=== PATIENT | female | born 1995 | race Caucasian/White ===

== ENCOUNTER 2022-05-02 10:23 | Emergency (ER) | payer BC ==
[2022-05-02] MEDS ORDERED: Sodium Chloride 0.9% 10 ML Syringe FLUSH PRN (11:01)
== END 2022-05-02 14:16 | disposition home or self-care (01) ==
LOC: JD.ED 10:23
DX: O03.9 Complete or unspecified spontaneous abortion without complication (principal)
CPT/HCPCS: 36415; 76817; 76817-26; 80053; 81001; 84702; 85025; 86900; 86901; 96372; 99284; J2790

== ENCOUNTER 2023-06-04 02:45 | Inpatient (IN) | payer BC ==
[2023-06-04] MEDS ORDERED: Ropivacaine 0.2% PF 2 MG/ML 20 ML SDV ONE (07:00)
[2023-06-04] MEDS ORDERED: Sodium Chloride 0.9% 10 ML Syringe FLUSH PRN (17:27)
[2023-06-04] MEDS ORDERED: Lidocaine 1% 50 ML MDV INJECT PRN (17:27)
[2023-06-04] MEDS ORDERED: Nalbuphine HCl 10 MG/ 1ML Amp IVPUSH PRN (17:27)
[2023-06-04] MEDS ORDERED: Oxytocin/Lactated Ringers 30 UNIT/500 ML BAG IV SCH ×2 (17:30)
[2023-06-04] MEDS ORDERED: Penicillin G Potassium 5 MILLUNITS in Sodium Chloride 0.9% 100 ML IV ONE (17:30)
[2023-06-04 18:04] LABS: BASOPHILS PERCENT AUTO 0.4 % (0.0-1.0); EOSINOPHILS PERCENT AUTO 0.3 % (0.0-6.0); HEMATOCRIT 36.5 % (37.0-47.0); HEMOGLOBIN 12.6 gm/dl (12.0-16.0); IMMATURE GRAN ABSOLUTE AUTO 0.04 K/mm3 (0.00-0.05); IMMATURE GRAN PERCENT AUTO 0.4 % (0.0-0.4); LYMPHOCYTES ABSOLUTE AUTO 2.3 K/mm3 (1.0-4.8); MEAN CORPUSCULAR HEMOGLOBIN 33.2 pg (28.0-32.0); MEAN CORPUSCULAR HGB CONC 34.5 g/dl (32.0-36.0); MEAN CORPUSCULAR VOLUME 96.1 fl (83.0-99.0); MEAN PLATELET VOLUME 10.8 fl (9.4-12.3); MONOCYTES ABSOLUTE AUTO 0.5 K/mm3 (0.0-0.8); MONOCYTES PERCENT AUTO 5.2 % (0.0-8.0); NEUTROPHILS ABSOLUTE AUTO 6.6 K/mm3 (1.8-7.7); NEUTROPHILS PERCENT AUTO 69.7 % (41.0-71.0); PLATELET COUNT,PLT 109 K/mm3 (150-400); WHITE BLOOD CELL COUNT,WBC 9.42 K/mm3 (3.9-11.3)
[2023-06-04] MEDS: Lactated Ringers 1,000 ML IV SCH (19:00)
[2023-06-04] MEDS ORDERED: Sodium Chloride 0.9% 10 ML Syringe FLUSH SCH (21:00)
[2023-06-04] MEDS: Penicillin G Potassium 2.5 MILLUNITS in Sodium Chloride 0.9% 100 ML IV SCH (22:21)
[2023-06-04] MEDS ORDERED: fentaNYL 100 MCG/2 ML SDV EPIDUR PRN (23:04)
[2023-06-04] MEDS ORDERED: Bupivacaine/fentaNYL/NS 100 ML Bag EPIDUR PRN (23:04)
[2023-06-04] MEDS ORDERED: diphenhydrAMINE 50 MG/ML SDV IVPUSH PRN (23:04)
[2023-06-05] MEDS: ePHEDrine 50 MG/ML SDV IVPUSH PRN ×2 (00:23→00:30)
[2023-06-05] MEDS: Lactated Ringers 1,000 ML IV SCH (01:30)
[2023-06-05] MEDS: Penicillin G Potassium 2.5 MILLUNITS in Sodium Chloride 0.9% 100 ML IV SCH (02:08)
[2023-06-05] MEDS ORDERED: Misoprostol 200 MCG Tab ONE (03:03)
[2023-06-05] MEDS ORDERED: Misoprostol 200 MCG Tab RECTAL STA (03:03)
[2023-06-05] MEDS ORDERED: Benzocaine/Menthol 20%-0.5% Spray 78 GM Cannister TOP PRN (06:02)
[2023-06-05] MEDS ORDERED: Acetaminophen 325 MG Tab PO PRN (06:02)
[2023-06-05] MEDS ORDERED: Witch Hazel Medicated Pads 40/Jar TOP PRN (06:02)
[2023-06-05] MEDS ORDERED: Docusate Sodium 100 MG Cap PO PRN (10:15)
[2023-06-05] MEDS: Docusate Sodium 100 MG Cap PO PRN (20:36)
[2023-06-05] MEDS: Ibuprofen 600 MG Tab PO PRN (20:36)
[2023-06-06] MEDS: Ibuprofen 600 MG Tab PO PRN (09:45)
[2023-06-06] MEDS: Docusate Sodium 100 MG Cap PO PRN (09:45)
== END 2023-06-06 18:10 | disposition home or self-care (01) | DRG 560 ==
LOC: JD.OB 02:45 → OBSVTOIN 06-05 02:45 → JD.OB 06-05 02:46
PROVIDERS: ADMIT Family Medicine; ATTEND Family Medicine
PROC: 10E0XZZ Delivery of Products of Conception, External Approach (ICD-10-PCS; principal; 2023-06-05)
PROC: 3E033VJ Introduction of Other Hormone into Peripheral Vein, Percutaneous Approach (ICD-10-PCS; 2023-06-05)
PROC: 3E0R3BZ Introduction of Anesthetic Agent into Spinal Canal, Percutaneous Approach (ICD-10-PCS; 2023-06-05)
PROC: 00HU33Z Insertion of Infusion Device into Spinal Canal, Percutaneous Approach (ICD-10-PCS; 2023-06-05)
PROC: 0KQM0ZZ Repair Perineum Muscle, Open Approach (ICD-10-PCS; 2023-06-05)
PROC: 3E0P7VZ Introduction of Hormone into Female Reproductive, Via Natural or Artificial Opening (ICD-10-PCS; 2023-06-05)
PROC: 10907ZC Drainage of Amniotic Fluid, Therapeutic from Products of Conception, Via Natural or Artificial Opening (ICD-10-PCS; 2023-06-05)
DX: O99.824 Streptococcus B carrier state complicating childbirth (principal); Z37.0 Single live birth; O99.12 Other diseases of the blood and blood-forming organs and certain disorders involving the immune mechanism complicating childbirth; D69.6 Thrombocytopenia, unspecified; O42.02 Full-term premature rupture of membranes, onset of labor within 24 hours of rupture; O26.893 Other specified pregnancy related conditions, third trimester; O76 Abnormality in fetal heart rate and rhythm complicating labor and delivery; O70.1 Second degree perineal laceration during delivery; Z3A.39 39 weeks gestation of pregnancy; Z67.21 Type B blood, Rh negative
CPT/HCPCS: 36415; 51702; 59025; 59409; 84112; 85025; 86592; A9270-GY; J2540; J2795; J3010; J3490; J7120; J7999

== ENCOUNTER 2024-07-26 11:06 | Inpatient (IN) | payer BC ==
[2024-07-26] MEDS ORDERED: Sodium Chloride 0.9% 10 ML Syringe FLUSH PRN (12:20)
[2024-07-26] MEDS ORDERED: Lidocaine 1% 50 ML MDV INJECT PRN (12:20)
[2024-07-26] MEDS ORDERED: Calcium Carbonate 500 MG Tab.Chew PO PRN (12:20)
[2024-07-26] MEDS ORDERED: Nalbuphine 10 MG/1 ML Vial IVPUSH PRN (12:20)
[2024-07-26] MEDS ORDERED: Ondansetron 4 MG/2 ML SDV IVPUSH PRN (12:20)
[2024-07-26] MEDS ORDERED: Oxytocin/0.9 % Sodium Chloride 30 UNIT/500 ML BAG IV SCH (12:30)
[2024-07-26 12:56] LABS: BASOPHILS PERCENT AUTO 0.2 % (0.0-1.0); EOSINOPHILS ABSOLUTE AUTO 0.1 K/mm3 (0.0-0.4); EOSINOPHILS PERCENT AUTO 0.6 % (0.0-6.0); HEMATOCRIT 38.8 % (37.0-47.0); HEMOGLOBIN 13.2 gm/dl (12.0-16.0); IMMATURE GRAN ABSOLUTE AUTO 0.03 K/mm3 (0.00-0.05); IMMATURE GRAN PERCENT AUTO 0.3 % (0.0-0.4); LYMPHOCYTES ABSOLUTE AUTO 1.9 K/mm3 (1.0-4.8); LYMPHOCYTES PERCENT AUTO 20.8 % (24.0-44.0); MEAN CORPUSCULAR HEMOGLOBIN 31.6 pg (28.0-32.0); MEAN CORPUSCULAR VOLUME 92.8 fl (83.0-99.0); MEAN PLATELET VOLUME 10.9 fl (9.4-12.3); MONOCYTES ABSOLUTE AUTO 0.3 K/mm3 (0.0-0.8); MONOCYTES PERCENT AUTO 3.7 % (0.0-8.0); NEUTROPHILS ABSOLUTE AUTO 6.8 K/mm3 (1.8-7.7); NEUTROPHILS PERCENT AUTO 74.4 % (41.0-71.0); PLATELET COUNT,PLT 135 K/mm3 (150-400); RED BLOOD CELL COUNT 4.18 M/mm3 (4.10-5.30); WHITE BLOOD CELL COUNT,WBC 9.09 K/mm3 (3.9-11.3)
[2024-07-26] MEDS: Penicillin G Potassium 5 MILLUNITS in Sodium Chloride 0.9% 100 ML IV ONE (12:56)
[2024-07-26] MEDS: Lactated Ringers 1,000 ML IV SCH (12:56)
[2024-07-26] MEDS: Penicillin G Potassium 2.5 MILLUNITS in Sodium Chloride 0.9% 100 ML IV SCH (17:04)
[2024-07-26] MEDS ORDERED: diphenhydrAMINE 50 MG/ML SDV IVPUSH PRN (17:12)
[2024-07-26] MEDS: fentaNYL 100 MCG/2 ML SDV EPIDUR PRN (17:20)
[2024-07-26] MEDS: Bupivacaine/fentaNYL/NS 100 ML Bag EPIDUR PRN (17:20)
[2024-07-26] MEDS: ePHEDrine 50 MG/ML SDV IVPUSH PRN (17:42)
[2024-07-26] MEDS: Oxytocin/0.9 % Sodium Chloride 30 UNIT/500 ML BAG IV SCH (19:33)
[2024-07-27] MEDS ORDERED: Docusate Sodium 100 MG Cap PO PRN (00:52)
[2024-07-27] MEDS ORDERED: Acetaminophen 325 MG Tab PO PRN (00:52)
[2024-07-27] MEDS: Witch Hazel Medicated Pads 40/Jar TOP PRN (01:02)
[2024-07-27] MEDS: Benzocaine/Menthol 20%-0.5% Spray 78 GM Cannister TOP PRN (01:02)
[2024-07-27] MEDS: Ibuprofen 600 MG Tab PO SCH (09:04)
[2024-07-28] MEDS: Measles, Mumps & Rubella Vaccine 0.5 ML SDV SUBCUT ONE (09:58)
== END 2024-07-28 10:38 | disposition home or self-care (01) | DRG 560 ==
LOC: JD.OBCHECK 11:06 → JD.OB 11:08 → JD.OBCHECK 12:20 → JD.OB 12:20 → OBSVTOIN 23:14 → JD.OB 23:15
PROVIDERS: ADMIT Family Medicine; ATTEND Family Medicine
PROC: 10E0XZZ Delivery of Products of Conception, External Approach (ICD-10-PCS; principal; 2024-07-26)
PROC: 10907ZC Drainage of Amniotic Fluid, Therapeutic from Products of Conception, Via Natural or Artificial Opening (ICD-10-PCS; 2024-07-26)
PROC: 3E0R3BZ Introduction of Anesthetic Agent into Spinal Canal, Percutaneous Approach (ICD-10-PCS; 2024-07-26)
PROC: 00HU33Z Insertion of Infusion Device into Spinal Canal, Percutaneous Approach (ICD-10-PCS; 2024-07-26)
DX: O99.824 Streptococcus B carrier state complicating childbirth (principal); Z37.0 Single live birth; O36.0930 Maternal care for other rhesus isoimmunization, third trimester, not applicable or unspecified; O71.4 Obstetric high vaginal laceration alone; Z67.91 Unspecified blood type, Rh negative; Z3A.38 38 weeks gestation of pregnancy
CPT/HCPCS: 36415; 51702; 59025; 59409; 85025; 86592; 86850; 86870; 86900; 86901; 90471; 90707; A9270-GY; J2540; J3010; J3490; J7120; J7999